=== PATIENT | male | born 1955 ===

== ENCOUNTER 2022-08-11 10:40 | Inpatient (IN) | payer OTHER ==
[~2022-08-11] VITALS: Ht 177.8 cm; Wt 63.5 kg
[2022-08-12] MEDS ORDERED: NORVASC10 MG PO (08:11)
[2022-08-12] MEDS ORDERED: VASOTEC20 M1 PO (08:11)
[2022-08-17] MEDS ORDERED: HYOSCYAMINE0.125 M1 SL (10:19)
== END 2022-08-17 12:28 | disposition home or self-care (01) | DRG 331 ==
LOC: SURH 08-14 07:10 → O/R 08-14 07:10 → SURH 08-14 12:15
PROVIDERS: ADMIT Surgery; ATTEND Surgery
PROC: 07BB4ZZ Excision of Mesenteric Lymphatic, Percutaneous Endoscopic Approach (ICD-10-PCS; 2022-08-14)
PROC: 0DTF4ZZ Resection of Right Large Intestine, Percutaneous Endoscopic Approach (ICD-10-PCS; principal; 2022-08-14 14:30)
DX: D12.2 Benign neoplasm of ascending colon (principal); Z20.822 Contact with and (suspected) exposure to COVID-19